=== PATIENT | female | born 1995 | race Asian ===

== ENCOUNTER 2017-07-22 18:51 | Emergency (ER) | payer OTHER ==
[2017-07-22 19:10] LABS: POC GLUCOSE 108 mg/dL (70-99)
[2017-07-22] MEDS: IV NORMAL SALINE 1000ML BAG 1,000 ML IV ×2 (19:35)
[2017-07-22 19:48] LABS: ADD MAN DIFF? NO
[2017-07-22 19:51] LABS: BASO % 1 % (0-3); EOS # 0.5 x10^3/uL (0.0-0.7); EOS % 11 % (0-3); HEMATOCRIT 38.5 % (36.0-47.0); LYMPH # 1.2 x10^3/uL (1.0-4.8); LYMPH % 25 % (24-48); MEAN CORPUSCULAR HEMOGLOBIN 31 pg (25-35); MEAN CORPUSCULAR HGB CONC 34 g/dL (31-37); MEAN CORPUSCULAR VOLUME 92 fL (79-100); MONO # 0.4 x10^3/uL (0.0-1.1); MONO % 9 % (0-9); NEUT # 2.5 x10^3uL (1.8-7.7); NEUT % 54 % (31-73); PLATELET COUNT 170 x10^3/uL (140-400); RED CELL DISTRIBUTION WIDTH 12.4 % (11.5-14.5); WHITE BLOOD COUNT 4.7 x10^3/uL (4.0-11.0)
[2017-07-22 20:08] LABS: ANION GAP 8 (6-14); BLOOD UREA NITROGEN 18 mg/dL (7-20); BUN/CREATININE RATIO 26 (6-20); CALCIUM 9.2 mg/dL (8.5-10.1); CARBON DIOXIDE 29 mmol/L (21-32); CHLORIDE 105 mmol/L (98-107); CREATININE 0.7 mg/dL (0.6-1.0); GFR 102.8; GLUCOSE 81 mg/dL (70-99); POTASSIUM 3.7 mmol/L (3.5-5.1); SODIUM 142 mmol/L (136-145)
[2017-07-22 20:08] LABS: D-DIMER < 0.27 ug/mlFEU (0.00-0.50)
[2017-07-22 20:13] LABS: BILIRUBIN,URINE NEGATIVE (NEG); CLARITY,URINE CLEAR; COLOR,URINE YELLOW; GLUCOSE,URINE NEGATIVE (NEG); NITRITE,URINE NEGATIVE (NEG); PROTEIN,URINE NEGATIVE (NEG-TRACE)
[2017-07-22 20:14] LABS: ALBUMIN 3.9 g/dL (3.4-5.0); ALBUMIN/GLOBULIN RATIO 1.1 (1.0-1.7); ALK PHOS 43 U/L (46-116); ALT (SGPT) 12 U/L (14-59); AST (SGOT) 6 U/L (15-37); TOTAL BILIRUBIN 0.3 mg/dL (0.2-1.0); TOTAL PROTEIN 7.6 g/dL (6.4-8.2)
[2017-07-22 20:14] LABS: URINE HCG POC HCG NEGATIVE (Negative)
[2017-07-22 20:21] LABS: CREATINE KINASE 80 U/L (26-192)
[2017-07-22 20:21] LABS: THYROID STIM HORMONE (TSH) 2.895 uIU/mL (0.358-3.74)
[2017-07-22 20:22] LABS: BACTERIA,URINE 0 /HPF (0-FEW); SQUAMOUS EPITHELIAL CELL,UR FEW /LPF; WBC,URINE 0 /HPF (0-4)
[2017-07-22 20:25] LABS: CKMB INDEX 0.6 % (0-4); CKMB MASS < 0.5 ng/mL (0.0-3.6)
== END 2017-07-22 21:22 | disposition home or self-care (01) ==
LOC: ER 18:51
DX: R55 Syncope and collapse (principal)
CPT/HCPCS: 36415; 71045; 80053; 81001; 81025; 82553; 82962; 84443; 85025; 85379; 93005; 96360; 99285-25; J7030

== ENCOUNTER 2020-01-18 03:08 | Emergency (ER) | payer SELFPAY ==
[~2020-01-18] VITALS: Ht 149.9 cm; Wt 54.1 kg
[2020-01-18 04:06] LABS: BASO % 0 % (0-3); EOS # 0.2 x10^3/uL (0.0-0.7); EOS % 2 % (0-3); HEMATOCRIT 35.4 % (36.0-47.0); HEMOGLOBIN 12.2 g/dL (12.0-15.5); LYMPH # 1.4 x10^3/uL (1.0-4.8); LYMPH % 14 % (24-48); MEAN CORPUSCULAR HEMOGLOBIN 31 pg (25-35); MEAN CORPUSCULAR HGB CONC 34 g/dL (31-37); MEAN CORPUSCULAR VOLUME 90 fL (79-100); MONO # 0.3 x10^3/uL (0.0-1.1); MONO % 3 % (0-9); NEUT % 80 % (31-73); PLATELET COUNT 207 x10^3/uL (140-400); RED BLOOD COUNT 3.93 x10^6/uL (3.50-5.40); RED CELL DISTRIBUTION WIDTH 12.8 % (11.5-14.5); WHITE BLOOD COUNT 10.1 x10^3/uL (4.0-11.0)
[2020-01-18 04:10] LABS: BILIRUBIN,URINE NEGATIVE (NEG); CLARITY,URINE CLEAR; COLOR,URINE AMBER; NITRITE,URINE NEGATIVE (NEG); PROTEIN,URINE NEGATIVE (NEG-TRACE)
[2020-01-18 04:16] LABS: PROTHROMBIN TIME PATIENT 13.3 SEC (11.7-14.0)
[2020-01-18 04:19] LABS: CALCIUM 8.5 mg/dL (8.5-10.1); CREATININE 0.8 mg/dL (0.6-1.0); POTASSIUM 3.3 mmol/L (3.5-5.1)
[2020-01-18 04:25] LABS: ALBUMIN 3.3 g/dL (3.4-5.0); ALBUMIN/GLOBULIN RATIO 0.8 (1.0-1.7); TOTAL BILIRUBIN 0.4 mg/dL (0.2-1.0); TOTAL PROTEIN 7.4 g/dL (6.4-8.2)
--- NOTE | 2020-01-18 04:25 | RAD ---
Obstetric ultrasound less than 14 weeks: Reason for examination: with bleeding. Transabdominal ultrasound examination of the pelvis was performed. There is a single viable intrauterine gestation present. There is cardiac activity with a heart rate of 165 bpm. Gestational sac has a normal contour. Adequate amniotic fluid is present. Placenta is anterior. [place]-rump length is 7.1 cm corresponding to gestational age of 13 weeks 2 days. Biparietal diameter is 2.31 cm corresponding to gestational age of 13 weeks 6 days. Head circumference is 8.92 cm corresponding to gestational age of 14 weeks 0 days. Abdominal circumference is 7.4 cm corresponding to gestational age of 13 weeks 6 days. Femur length is 1.01 cm corresponding to gestational age of 13 weeks 0 days. Cephalic index is 75.5. Head circumference to abdominal circumference ratio is 1.21. Femur length to head circumference ratio is 11.3. Estimated weight is 77 g or approximately 0 lbs. 3 oz. Mean gestational age is estimated at 13 weeks 4 days with estimated date of confinement of 07/21/2020. This is younger than clinical dates. Cervix length is normal at 3.8 cm. The maternal ovaries are not identified. IMPRESSION: Single viable intrauterine gestation with mean gestational age estimated at 13 weeks 4 days with an estimated date of confinement of 07/21/2020. This is at least 3 weeks younger than clinical dates. Electronically signed by: April Cloud MD (01/18/2020 4:22 AM) [id number]
[2020-01-18 04:29] LABS: BACTERIA,URINE FEW /HPF (0-FEW); RBC,URINE TNTC /HPF (0-2); SQUAMOUS EPITHELIAL CELL,UR FEW /LPF; WBC,URINE OCC /HPF (0-4)
--- NOTE | 2020-01-18 05:10 | PHYS DOC ---
Past Medical History Past Medical History: No Pertinent History Past Surgical History: Other Additional Past Surgical Histo: D-N-C Smoking Status: Never Smoker Alcohol Use: None Drug Use: None General Adult EDM: Chief Complaint: VAGINAL BLEEDING HPI: HPI: Patient is a 25-year-old G6 para 4 with 1 spontaneous miscarriage who presents stating she is approximately 16 weeks and had some bleeding today. She states that sometime last evening she thought she had urinated and noted a large gush of blood came out. She denies any trauma to the area. She states the bleeding is relatively well controlled now she did note that she had some spotting a day or 2 ago. There is been no fever chills or sweats. [] Review of Systems: Review of Systems: Constitutional: Denies fever or chills. [] Eyes: Denies change in visual acuity. [] HENT: Denies nasal congestion or sore throat. [] Respiratory: Denies cough or shortness of breath. [] Cardiovascular: Denies chest pain or edema. [] GI: Denies abdominal pain, nausea, vomiting, bloody stools or diarrhea. [] : Per HPI [] Musculoskeletal: Denies back pain or joint pain. [] Integument: Denies rash. [] Neurologic: Denies headache, focal weakness or sensory changes. [] Endocrine: Denies polyuria or polydipsia. [] Lymphatic: Denies swollen glands. [] Psychiatric: Denies depression or anxiety. [] Heart Score: Risk Factors: Risk Factors: DM, Current or recent (<one month) smoker, HTN, HLP, family history of CAD, obesity. Risk Scores: Score 0 - 3: 2.5% MACE over next 6 weeks - Discharge Home Score 4 - 6: 20.3% MACE over next 6 weeks - Admit for Clinical Observation Score 7 - 10: 72.7% MACE over next 6 weeks - Early Invasive Strategies Allergies: Allergies: Allergies Coded Allergies Type Severity Reaction Last Updated Verified No Known Drug Allergies 07/22/17 No Physical Exam: PE: Constitutional: Well developed, well nourished, no acute distress, non-toxic appearance. [] HENT: Normocephalic, atraumatic, bilateral external ears normal, oropharynx moist, no oral exudates, nose normal. [] Eyes: PERRLA, EOMI, conjunctiva normal, no discharge. [] Neck: Normal range of motion, no tenderness, supple, no stridor. [] Cardiovascular:Heart rate regular rhythm, no murmur [] Lungs & Thorax: Bilateral breath sounds clear to auscultation [] Abdomen: Bowel sounds normal, soft, no tenderness, no masses, no pulsatile masses. [] Skin: Warm, dry, no erythema, no rash. [] Back: No tenderness, no CVA tenderness. [] Extremities: No tenderness, no cyanosis, no clubbing, ROM intact, no edema. [] Neurologic: Alert and oriented X 3, normal motor function, normal sensory function, no focal deficits noted. [] Psychologic: Affect normal, judgement normal, mood normal. [] Current Patient Data: Labs: Laboratory Tests Test 01/18/20 03:30 White Blood Count 10.1 x10^3/uL (4.0-11.0) Red Blood Count 3.93 x10^6/uL (3.50-5.40) Hemoglobin 12.2 g/dL (12.0-15.5) Hematocrit 35.4 % (36.0-47.0) L Mean Corpuscular Volume 90 fL (79-100) Mean Corpuscular Hemoglobin 31 pg (25-35) Mean Corpuscular Hemoglobin Concent 34 g/dL (31-37) Red Cell Distribution Width 12.8 % (11.5-14.5) Platelet Count 207 x10^3/uL (140-400) Neutrophils (%) (Auto) 80 % (31-73) H Lymphocytes (%) (Auto) 14 % (24-48) L Monocytes (%) (Auto) 3 % (0-9) Eosinophils (%) (Auto) 2 % (0-3) Basophils (%) (Auto) 0 % (0-3) Neutrophils # (Auto) 8.0 x10^3/uL (1.8-7.7) H Lymphocytes # (Auto) 1.4 x10^3/uL (1.0-4.8) Monocytes # (Auto) 0.3 x10^3/uL (0.0-1.1) Eosinophils # (Auto) 0.2 x10^3/uL (0.0-0.7) Basophils # (Auto) 0.0 x10^3/uL (0.0-0.2) Prothrombin Time 13.3 SEC (11.7-14.0) Prothrombin Time INR 1.1 (0.8-1.1) Urine Collection Type Unknown Urine Color Lia Urine Clarity Clear Urine pH 6.0 (<5.0-8.0) Urine Specific [place] >=1.030 (1.000-1.030) Urine Protein Negative mg/dL (NEG-TRACE) Urine Glucose (UA) Negative mg/dL (NEG) Urine Ketones (Stick) Negative mg/dL (NEG) Urine Blood Large (NEG) Urine Nitrite Negative (NEG) Urine Bilirubin Negative (NEG) Urine Urobilinogen Dipstick 1.0 mg/dL (0.2 mg/dL) Urine Leukocyte Esterase Negative (NEG) Urine RBC Tntc /HPF (0-2) Urine WBC Occ /HPF (0-4) Urine Squamous Epithelial Cells Few /LPF Urine Bacteria Few /HPF (0-FEW) Urine Mucus Marked /LPF Maternal Serum HCG Beta Subunit 43395 mIU/mL (0-5) H Sodium Level 136 mmol/L (136-145) Potassium Level 3.3 mmol/L (3.5-5.1) L Chloride Level 102 mmol/L (98-107) Carbon Dioxide Level 28 mmol/L (21-32) Anion Gap 6 (6-14) Blood Urea Nitrogen 9 mg/dL (7-20) Creatinine 0.8 mg/dL (0.6-1.0) Estimated GFR (Cockcroft-Gault) 86.0 BUN/Creatinine Ratio 11 (6-20) Glucose Level 91 mg/dL (70-99) Calcium Level 8.5 mg/dL (8.5-10.1) Total Bilirubin 0.4 mg/dL (0.2-1.0) Aspartate Amino Transferase (AST) 16 U/L (15-37) Alanine Aminotransferase (ALT) 19 U/L (14-59) Alkaline Phosphatase 38 U/L (46-116) L Total Protein 7.4 g/dL (6.4-8.2) Albumin 3.3 g/dL (3.4-5.0) L Albumin/Globulin Ratio 0.8 (1.0-1.7) L Laboratory Tests 01/18/20 03:30 Laboratory Tests 01/18/20 03:30 Vital Signs: Vital Signs Date Time Temp Pulse Resp B/P (MAP) Pulse Ox O2 Delivery O2 Flow Rate FiO2 01/18/20 04:48 62 15 97/53 (68) 98 Room Air 01/18/20 03:22 98.1 98.1 EKG: EKG: [] Radiology/Procedures: Radiology/Procedures: []STATUS: REG LONA. PHYSICIAN: CASSIDY RAE DO REASON: bleeding preg PROCEDURE: OB < 14 WKS Obstetric ultrasound less than 14 weeks: Reason for examination: with bleeding. Transabdominal ultrasound examination of the pelvis was performed. There is a single viable intrauterine gestation present. There is cardiac activity with a heart rate of 165 bpm. Gestational sac has a normal contour. Adequate amniotic fluid is present. Placenta is anterior. [place]-rump length is 7.1 cm corresponding to gestational age of 13 weeks 2 days. Biparietal diameter is 2.31 cm corresponding to gestational age of 13 weeks 6 days. Head circumference is 8.92 cm corresponding to gestational age of 14 weeks 0 days. Abdominal circumference is 7.4 cm corresponding to gestational age of 13 weeks 6 days. Femur length is 1.01 cm corresponding to gestational age of 13 weeks 0 days. Cephalic index is 75.5. Head circumference to abdominal circumference ratio is 1.21. Femur length to head circumference ratio is 11.3. Estimated weight is 77 g or approximately 0 lbs. 3 oz. Mean gestational age is estimated at 13 weeks 4 days with estimated date of confinement of 07/21/2020. This is younger than clinical dates. Cervix length is normal at 3.8 cm. The maternal ovaries are not identified. IMPRESSION: Single viable intrauterine gestation with mean gestational age estimated at 13 weeks 4 days with an estimated date of confinement of 07/21/2020. This is at least 3 weeks younger than clinical dates. Course & Med Decision Making: Course & Med Decision Making Pertinent Labs and Imaging studies reviewed. (See chart for details) [] [place] Disclaimer: Jeanne Disclaimer: This electronic medical record was generated, in whole or in part, using a voice recognition dictation system. Departure Departure Impression: Primary Impression: Threatened Disposition: HOME, SELF-CARE Condition: STABLE Referrals: NO PCP (PCP) Patient Instructions: Threatened Miscarriage Additional Instructions: It is very important that you follow with your OB in the next few days. Return to the emergency department any new or concerning symptoms Justicifation of Admission Dx: Justifications for Admission: Justification of Admission Dx: No CASSIDY RAE DO Jan 18, 2020 05:10
[2020-01-18 05:18] VITALS: BP 106/58
== END 2020-01-18 05:24 | disposition home or self-care (01) ==
LOC: ER 03:08
DX: O20.0 Threatened abortion (principal); Z3A.13 13 weeks gestation of pregnancy
CPT/HCPCS: 36415; 76801; 80053; 81001; 84702; 85025; 85610; 86900; 86901; 99285-25